=== PATIENT | female | born 1970 | race Caucasian/White ===

== ENCOUNTER → 2021-12-26 | Emergency (ER) | payer OTHER ==
[~2021-12-26] MED LIST: CEFADROXIL500 MG PO; PEPCID40 MG PO; PHENERGAN25 MG PO; PREDNISONE5 MG/DOSE- PO; SUDAFED PE10 MG PO; TRAMADOL HCL50 MG PO
== END | disposition home or self-care (01) ==
LOC: ER 17:02
DX: U07.1 COVID-19 (principal)